=== PATIENT | male | born 1960 | race Caucasian/White ===

== ENCOUNTER 2020-10-05 09:49 | Emergency (ER) | payer OTHER ==
[~2020-10-05] VITALS: Ht 162.6 cm; Wt 51.4 kg
[2020-10-05 10:06] VITALS: BP 139/85
[2020-10-05] MEDS ORDERED: FLUC100T PO (10:39)
== END 2020-10-05 11:08 | disposition home or self-care (01) ==
LOC: ER 09:51
DX: B37.0 Candidal stomatitis (principal)
CPT/HCPCS: 99283